=== PATIENT | male | born 1965 | race Caucasian/White ===

== ENCOUNTER 2017-05-08 02:14 | Emergency (ER) | payer OTHER ==
[~2017-05-08] VITALS: Ht 175.3 cm; Wt 88.5 kg
[~2017-05-08 02:14] MED LIST: ALBUTEROL SULFAT3 M1 INH; AUGMENTIN 875875 MG PO; FLOMAX(MONOGRA0.4 MG PO; LEVOCETIRIZINE D5 MG PO; MOTRIN 400MG (400 MG PO; NOVAPLUS V0.09 MG/Ac INH; PERCOCET 325 MG1 TA2 PO; PERCOCET 5-3251 EACH PO; PREDNICOT20 MG PO; PROAIR HFA0.09 MG/Ac INH; ROBITUSSIN W/CO10 ML PO; SYMBICORT 160/41 PUF INH; VICODIN5-300 PO; XYZAL5 MG PO; ZITHROMAX Z-PA250 M1 PO
--- NOTE | 2017-05-08 05:45 | ED DYSPNEA/ASTHMA COMPLAINT ---
History of Present Illness General Chief Complaint: Dyspnea (COPD, CHF, Other) Stated Complaint: DIFF BREATHING HX ASTHMA COPD, FEVER 02 SAT 94% Source: patient, old records Exam Limitations: no limitations Vital Signs & Intake/Output Vital Signs & Intake/Output Vital Signs Date Time Temp Pulse Resp B/P B/P Pulse O2 O2 Flow FiO2 Mean Ox Delivery Rate 05/08 0446 95 05/08 0218 100.3 82 18 167/89 94 Room Air Allergies Coded Allergies: erythromycin base (Mild, GI UPSET 05/08/17) Reconcile Medications Albuterol Sulfate 3 ML NEB 3 ML INH PRN COPD (Reported) Albuterol Sulfate (Proair Hfa) 0.09 MG/Actuation PANCHO 2 PUFF INH PRN COPD ( Reported) Albuterol Sulfate (Proventil Hfa) 90 MCG HFA.AER.AD 2 PUF INH Q4 PRN wheezing Amoxicillin 875 MG TABLET 1 TAB PO BID bronchitis Amoxicillin/Clavulanate Potass (Amox-Clav 875-125 MG Tablet) 875 MG TAB 1 TAB PO BID OPEN FRACTURE Benzonatate (Tessalon Perle) 100 MG CAPSULE 1 CAP PO TID PRN cough Budesonide/Formoterol Fumara (Symbicort 160-4.5 Mcg Inhaler) 160 MCG/4.5 MCG PUF 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 PATIENT HX ASTHMA, COPD, [place] IN TRIAGE, ANXIOUS. PATIENT REPORTS "I ALREADY KNOW I'M GOING TO NEED OXYGEN, A BREATHING TREATMENT AND PREDNISONE." TAKING INHALER AND NEB W/O RELIEF, "WHEN MY INSURANCE ACTULALLY PAYS FOR IT, OUT OF PROAIR." +PRODUCTIVE WHITE PHELEM COUGH. Triage Nurses Notes Reviewed? yes Onset: Last week Duration: day(s):, constant, continues in ED, getting worse Timing: recent history Severity: severe Activities at Onset: rest Prior Episodes/Possible Cause: illness exposure Modifying Factors: Improves With: rest. Worsens With: movement. Associated Symptoms: cough, insomnia, wheezing, weakness HPI: 1 week prior to admission patient complains of productive cough increasing wheezing shortness of breath low grade fever chills and fatigue. He denies chest pain nausea vomiting diarrhea abdominal pain rash dysuria headache bleeding. Past History Travel History Traveled to [place] past 21 day No Medical History Any Pertinent Medical History? 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 No Review of Systems Review of Systems Constitutional: Reports: no symptoms. EENTM: Reports: no symptoms. Respiratory: Reports: see HPI, cough, short of breath, wheezing. Cardiovascular: Reports: no symptoms. GI: Reports: no symptoms. Genitourinary: Reports: no symptoms. Musculoskeletal: Reports: no symptoms. Skin: Reports: no symptoms. Neurological/Psychological: Reports: no symptoms. Hematologic/Endocrine: Reports: no symptoms. Immunologic/Allergic: Reports: no symptoms. All Other Systems: Reviewed and Negative Physical Exam Physical Exam General Appearance: well developed/nourished, alert, awake, anxious, moderate distress Head: atraumatic, normal appearance Eyes: Bilateral: normal appearance, PERRL, EOMI. Ears, Nose, Throat: normal pharynx, normal ENT inspection Neck: normal inspection, supple, full range of motion, no midline tenderness Respiratory: chest non-tender, decreased breath sounds, wheezing, rales Cardiovascular: regular rate/rhythm, normal peripheral pulses, norml femoral pulses equa Peripheral Pulses: 4+ carotid (R), 4+ carotid (L) Gastrointestinal: normal bowel sounds, soft, non-tender, no organomegaly Extremities: normal inspection, normal capillary refill, normal range of motion, no edema Neurologic/Psych: no motor/sensory deficits, awake, alert, oriented x 3, normal gait, normal mood/affect, 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 No Severe Sepsis Present: No Septic Shock Present: No Progress Differential Diagnosis: asthma, bronchitis, COPD, pneumonia Plan of Care: Current Medications Sig/Elisa Start time Last Medication Dose Stop Time Status Admin Amoxicillin 750 MG ONCE ONE 05/08 615 UNVr (Amoxil) 05/08 616 Diagnostic Imaging: Viewed by Me: Radiology Read. Discussed w/RAD: Radiology Read. CXR Impression: no acute abnormality, no infiltrates Initial ED EKG: none Departure Departure Time of Disposition: 603 Disposition: HOME OR SELF CARE Condition: Stable Clinical Impression Primary Impression: COPD with acute bronchitis Referrals: RAMIREZ POLK,ESTRELLA Hill (PCP/Family) Departure Forms: Customer Survey General Discharge Information Prescriptions: Current Visit Scripts Prednisone 1 TAB PO BID #10 TAB Benzonatate (Tessalon Perle) 1 CAP PO TID PRN cough #21 CAP Albuterol Sulfate (Proventil Hfa) 2 PUF INH Q4 PRN wheezing #1 INHAL Amoxicillin 1 TAB PO BID #20 TAB Critical Care Note Critical Care Note Critical Care Time: non-applicable
--- NOTE | 2017-05-08 05:52 | RADIOLOGY REPORT ---
EXAMINATION: XR CHEST CLINICAL INFORMATION: Shortness of breath, cough COMPARISON: None TECHNIQUE: 2 views of the chest were obtained. FINDINGS: The lungs are clear with no focal consolidation. No evidence of pneumothorax, pulmonary edema, or pleural effusions. The cardiomediastinal silhouette is unremarkable. No acute osseous findings. IMPRESSION: No acute cardiopulmonary findings.
[2017-05-08] MEDS ORDERED: PROVENTIL HFA6.7 GM INH (06:06)
[2017-05-08] MEDS ORDERED: AMOXICILLIN875 M1 PO (06:06)
[2017-05-08] MEDS ORDERED: PREDNISONE20 M1 PO (06:06)
[2017-05-08] MEDS ORDERED: TESSALON PERLE100 M1 PO (06:06)
[2017-05-08 06:12] VITALS: BP 138/76
== END 2017-05-08 06:15 ==
LOC: ERH 02:14
DX: J44.0 Chronic obstructive pulmonary disease with (acute) lower respiratory infection (principal); F17.200 Nicotine dependence, unspecified, uncomplicated
CPT/HCPCS: 1263; 1395

== ENCOUNTER 2018-06-08 07:17 | Emergency (ER) | payer OTHER ==
[~2018-06-08] VITALS: Ht 175.3 cm; Wt 88.5 kg
[~2018-06-08 07:17] MED LIST changes: +AMOXICILLIN875 M1 PO; +PREDNISONE20 M1 PO; +PROVENTIL HFA6.7 GM INH; +TESSALON PERLE100 M1 PO
--- NOTE | 2018-06-08 07:41 | ED PSYCHIATRIC COMPLAINT ---
History of Present Illness General Chief Complaint: ETOH/Drug Related Complaint Stated Complaint: REQ DETOX ETOH,COCAINE Source: patient Exam Limitations: no limitations Allergies Coded Allergies: erythromycin base (Mild, GI UPSET 05/08/17) Reconcile Medications Albuterol Sulfate (Proventil Hfa) 90 MCG HFA.AER.AD 2 PUF INH Q4 PRN wheezing Budesonide/Formoterol Fumarate (Symbicort 160-4.5 Mcg Inhaler) 160 MCG-4.5 MCG/ ACTUATION HFA.AER.AD 2 PUF INH BID COPD (Reported) Loratadine (Claritin) 10 MG TABLET 1 TAB PO DAILY ALLERGIES (Reported) Tiotropium Brooks (Spiriva) 18 MCG CAP.W.DEV 1 CAP INH DAILY BREATHING PROBLEMS (Reported) Triage Note: 53 YO MALE TO TRIAGE FOR [facility] FROM [facility] [employer]. REPORTS DRINKS APPROX 20 BEERS/SHOT A DAYS. DENIES AVIS MALLOY. LAST COCAINE USE WAS LAST PM. REPORTS "I AM A DANGER TO MYSELF" DENIES HI. Triage Nurses Notes Reviewed? yes Onset: Abrupt Duration: day(s): Timing: recent history HPI: 06/08/18 9 AM 53-year-old man presents to the emergency department complaining of assistance with alcohol and cocaine dependency. He says he drinks every day. He denies any alcohol withdrawal seizures. He's also been using cocaine. He denies any chest pain, abdominal pain or other complaints. He does smoke. His last drink was yesterday morning. He has mild tremors. (Rito Meng DO) Vital Signs & Intake/Output Vital Signs & Intake/Output Vital Signs Date Time Temp Pulse Resp B/P B/P Pulse O2 O2 Flow FiO2 Mean Ox Delivery Rate 06/08 1603 97.1 65 18 170/97 96 Room Air 06/08 1400 98.0 66 16 139/77 06/08 1400 98.0 66 16 139/77 98 Room Air 06/08 1200 98.3 65 18 135/85 06/08 1200 98.3 65 18 135/85 97 Room Air 06/08 1028 98.4 72 18 150/78 06/08 1028 98.4 72 18 150/78 98 Room Air 06/08 0920 95 Room Air 06/08 0902 98.0 70 18 159/88 97 Room Air 07/17 0901 98.0 70 18 159/88 06/08 0722 98.6 73 18 167/98 98 Room Air (Rito Meng DO ([facility])) Past History Travel History Traveled to [place] past 21 day No Medical History Any Pertinent Medical History? 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 No (Rito Meng DO) Review of Systems Review of Systems Constitutional: Denies: fever. EENTM: Denies: visual changes. Respiratory: Denies: short of breath. Cardiovascular: Denies: chest pain. GI: Denies: abdominal pain. Genitourinary: Reports: no symptoms. Musculoskeletal: Reports: no symptoms. Skin: Denies: rash. Neurological/Psychological: Reports: no symptoms. Hematologic/Endocrine: Reports: no symptoms. Immunologic/Allergic: Reports: no symptoms. (Rito Meng DO) Physical Exam Physical Exam General Appearance: well developed/nourished, alert, awake, anxious, mild distress Head: atraumatic, normal appearance Eyes: Bilateral: normal appearance, PERRL, EOMI. Ears, Nose, Throat: normal pharynx, normal ENT inspection, hearing grossly normal Neck: normal inspection, supple, full range of motion Respiratory: normal breath sounds, chest non-tender, no respiratory distress Cardiovascular: regular rate/rhythm Gastrointestinal: non-tender Extremities: normal range of motion Neurological/Psychiatric: no motor/sensory deficits, awake, agitated, alert, anxious, MILD TREMOR Appearance/Memory/Insight: appropriate appearance Behavoir/Eye Contact/Speech: cooperative Thoughts/Hallucinations: normal thought pattern Skin: intact, normal color, warm/dry SAD PERSONS Done? patient not suicidal (Rito Meng DO) Progress Differential Diagnosis: depression, etoh abuse Initial ED EKG: NSR (Rito Meng DO) Plan of Care: Orders Procedure Date/time Status Regular Diet 06/08 L Active CIWA 06/08 0753 Active TROPONIN LEVEL 06/08 075 Complete Continuous Observation Monitor 06/08 07 Active URINE DRUG SCREEN FOR ER ONLY 06/08 732 Complete ETHANOL 06/08 732 Complete COMPREHENSIVE METABOLIC PANEL 06/08 732 Complete CBC WITHOUT DIFFERENTIAL 06/08 732 Complete EKG 06/08 732 Active Laboratory Tests 06/08/18 0807: Urine Opiates Screen < 100, Methadone Screen < 40, Barbiturate Screen < 60, Ur Phencyclidine Scrn < 6.00, Amphetamines Screen < 100, U Benzodiazepines Scrn < 85, Urine Cocaine Screen > 1000 H, Urine Cannabis Screen < 5.00 06/08/18 0750: Anion Gap 11, Estimated GFR > 60, BUN/Creatinine Ratio 13.8, Glucose 111 H, Calcium 8.9, Total Bilirubin 0.5, AST 41, ALT 45, Alkaline Phosphatase 60, Troponin I < 0.01, Total Protein 7.3, Albumin 4.3, Globulin 3.0, Albumin/ Globulin Ratio 1.4, CBC w Diff NO MAN DIFF REQ, RBC 4.89, MCV 94.3 H, MCH 32.8 H, MCHC 34.7, RDW 13.1, MPV 8.0, Gran % 67.0, Lymphocytes % 22.1, Monocytes % 8.1, Eosinophils % 2.4, Basophils % 0.4, Absolute Granulocytes 5.2, Absolute Lymphocytes 1.7, Absolute Monocytes 0.6, Absolute Eosinophils 0.2, Absolute Basophils 0, Serum Alcohol < 10.0 06/08/18 0739: Troponin I Cancelled (Rito Meng DO ([facility])) Comments: Attending addendum by Dr. Castro: Originally I had assumed care of this patient from Dr. Meng at shift change, however prior to his departure the disposition was made and the patient was cleared for discharge by crisis. Dr. Meng discharge the patient himself. I had no other contact with the patient. (Alexx Castro DO) Departure Departure Disposition: HOME OR SELF CARE Condition: Stable Clinical Impression Primary Impression: Alcohol abuse Referrals: Fam POLK,Diego Hill (PCP/Family) Departure Forms: Customer Survey General Discharge Information Comments 06/08/18 12:40 PM Patient has complaint of suicidal ideation. collaborated his story. Crisis consultation was requested. (Rito Meng DO) Departure Comments 06/08/18 3:30 PM The patient was seen and evaluated and cleared by crisis. He is following up with a [facility] for admission today. (Rito Meng DO ([facility])) 06/08/18 3:30 PM The patient was seen and evaluated and cleared by crisis. He is following up with a [facility] for admission today. (Rito Meng DO ([facility]))
[2018-06-08 08:07] LABS: ABSOLUTE BASOPHIL COUNT 0 /CUMM (0.0-0.2); ABSOLUTE EOSINOPHIL COUNT 0.2 /CUMM (0.0-0.7); ABSOLUTE GRANULOCYTE CT 5.2 /CUMM (1.4-6.5); ABSOLUTE LYMPH COUNT 1.7 /CUMM (1.2-3.4); ABSOLUTE MONOCYTE COUNT 0.6 /CUMM (0.10-0.60); BASOPHIL % 0.4 % (0.0-2.0); EOSINOPHIL % 2.4 % (0-5); HEMATOCRIT 46.1 % (42-52); MEAN CORPUSCULAR HGB 32.8 PG (27.0-31.0); MEAN CORPUSCULAR HGB CONC 34.7 G/DL (33.0-37.0); MEAN CORPUSCULAR VOLUME 94.3 FL (80.0-94.0); PLATELET COUNT 156 /CUMM (130-400); RBC DISTRIBUTION WIDTH 13.1 % (11.5-14.5); RED BLOOD CELL CT 4.89 /CUMM (4.70-6.10); WHITE BLOOD CELL COUNT 7.8 /CUMM (4.8-10.8)
[2018-06-08] MEDS ORDERED: SPIRIVA18 MCG INH (08:56)
[2018-06-08] MEDS ORDERED: CLARITIN10 M1 PO (08:57)
[2018-06-08] MEDS ORDERED: SYMBICORT 16010.2 GM INH (08:58)
--- NOTE | 2018-06-08 15:56 | ED PSY CRISIS COLLATERAL NOTE ---
Collateral Note Collateral Note Family/Inform/[place] Contacts: 10 am. Sw spoke with pt briefly regarding his interest to [facility] center. Pt reported his uncle would pay for his tx. Pt's insurance is [employer]. Ata spoke with pt this morning and gave him a list of rehabs, detoxes and half way houses from [employer] website. 11:30 Later ata informed pt's uncle would not be paying and sw encouraged pt to call for available beds. Pt did so. Pt reports a hx of inpt at [facility] years ago. Pt presenting calm and cooperative. Pt's ex advocating for him and inappropriate at times. Pt may need detox before rehab. Pt interested in holding bed while awaiting rehab. Pt making calls for detox and rehab.
[2018-06-08 16:03] VITALS: BP 170/97
== END 2018-06-08 16:17 ==
LOC: ERH 07:17
PROVIDERS: Emergency Medicine
DX: F10.10 Alcohol abuse, uncomplicated (principal); R45.851 Suicidal ideations
CPT/HCPCS: 80307; 93005; 93010; G0480; J3490